=== PATIENT | female | born 1970 | race Caucasian/White ===

== ENCOUNTER 2022-10-25 05:56 | Inpatient (IN) | payer MEDICARE, OTHER, SELFPAY ==
[2022-10-25] MEDS ORDERED: Acetaminophen 500 MG TAB ONE (06:26)
[2022-10-25] MEDS ORDERED: Cefepime 2 GM VIAL ONE (06:26)
[2022-10-25 06:36] LABS: #Basophils 0.1 thou/uL (0.0-0.2); #Eosinphils 0.3 thou/uL (0.0-0.7); #Monocytes 1.3 thou/uL (0.11-0.59); #Neutrophils 14.2 thou/uL (1.40-6.50); %Basophils 0.5 % (0.0-1.0); %Eosinophils 1.6 % (0.0-10.0); %Lymphocytes 9.1 % (21.0-51.0); %Monocytes 7.1 % (0.0-10.0); %Neutrophils 80.4 % (42.0-75.0); Hemoglobin 14.3 g/dL (12.0-16.0); Mean Corpuscular HGB CONC 34.3 g/dL (32.0-36.0); Mean Corpuscular Hemoglobin 29.8 pg (27.0-31.0); Mean Corpuscular Volume 86.9 fl (78.0-98.0); Mean Platelet Volume 9.3 fL (7.4-10.4); Platelet Count 294 10x3/uL (130-400); RBC Distribution Width 13.1 % (11.5-14.5); White Blood Cell (WBC) Count 17.6 10x3/uL (4.8-10.8)
[2022-10-25 06:59] LABS: ALT (SGPT) 27 U/L (8-55); AST (SGOT) 24 U/L (5-34); Albumin 3.1 g/dL (3.5-5.0); Alkaline Phosphatase 81 U/L (40-110); Anion Gap 14 mmol/L (10-20); BUN (Urea Nitrogen) 6 mg/dL (9.8-20.1); Bilirubin, Total 0.3 mg/dL (0.2-1.2); Calc. Creatinine Clearance 0 mL/min (70-130); Calcium 8.5 mg/dL (7.8-10.44); Carbon Dioxide 17 mmol/L (22-29); Chloride 85 mmol/L (98-107); Estimated GFR 119; Globulin 3.6 g/dL (2.4-3.5); Glucose 122 mg/dL (70-105); Potassium 4.2 mmol/L (3.5-5.1); Protein, Total 6.7 g/dL (6.0-8.3)
[2022-10-25 07:07] LABS: Sodium 112 mmol/L (136-145)
[2022-10-25] MEDS ORDERED: Vancomycin 1 GM/200 ML (FROZEN) BAG ONE (07:20)
[2022-10-25] MEDS ORDERED: Ipratropium/Albuterol 3 ML NEB ONE ×2 (07:20→07:35)
[2022-10-25 07:33] LABS: Bilirubin Negative (Negative); Blood, Urine Large (Negative); Glucose, Urine (Dipstick) Negative (Negative); Ketone, Urine 15 mg/dL (Negative); Leukocyte Large (Negative); Nitrite Negative (Negative); Protein, Urine (Dipstick) Negative (Neg-Trace); Specific Gravity, Urine 1.025 (1.005-1.030)
[2022-10-25 07:37] LABS: Clarity Cloudy (Clear)
[2022-10-25 07:40] LABS: CAUTI Indications for Culture Dysuria,urgency,freq; WBC/HPF Greater Than 50 HPF (0-3)
[2022-10-25 07:41] LABS: Bacteria/HPF 4+ HPF (None Seen)
[2022-10-25 07:42] LABS: Urine Culture Reflex Yes Yes
[2022-10-25 08:26] LABS: Anion Gap 16 mmol/L (10-20); BUN (Urea Nitrogen) 6 mg/dL (9.8-20.1); Calc. Creatinine Clearance 0 mL/min (70-130); Calcium 8.7 mg/dL (7.8-10.44); Carbon Dioxide 16 mmol/L (22-29); Chloride 85 mmol/L (98-107); Estimated GFR 119; Glucose 109 mg/dL (70-105); Potassium 4.7 mmol/L (3.5-5.1)
[2022-10-25 08:32] LABS: Sodium 112 mmol/L (136-145)
[2022-10-25] MEDS ORDERED: Ondansetron PF 4 MG/2 ML Vial IVP PRN (08:34)
[2022-10-25] MEDS ORDERED: Senokot S 8.6-50 MG TAB PO PRN (08:34)
[2022-10-25] MEDS ORDERED: HYDROcodone/Acetaminophen 5/325 mg Tablet PO PRN (08:34)
[2022-10-25] MEDS ORDERED: Ipratropium/Albuterol 3 ML NEB NEB PRN (08:37)
[2022-10-25] MEDS ORDERED: Vancomycin 1 GM in Premix Bag 1 BAG IVPB SCH (09:00)
[2022-10-25 09:08] VITALS: BMI 29.0
[2022-10-25] MEDS ORDERED: VANCOMYCIN IVPB PRN (10:33)
[2022-10-25] MEDS ORDERED: Vancomycin HCl 500 MG in Sodium Chloride 0.9% 100 ML IVPB SCH (10:45)
[2022-10-25] MEDS ORDERED: metroNIDAZOLE 500 MG/100 ML BAG ONE (11:34)
[2022-10-25 11:45] LABS: Anion Gap 12 mmol/L (10-20); BUN (Urea Nitrogen) 6 mg/dL (9.8-20.1); Calc. Creatinine Clearance 209 mL/min (70-130); Calcium 8.8 mg/dL (7.8-10.44); Carbon Dioxide 19 mmol/L (22-29); Chloride 87 mmol/L (98-107); Estimated GFR 119; Glucose 107 mg/dL (70-105); Potassium 4.2 mmol/L (3.5-5.1)
[2022-10-25 11:54] LABS: Sodium 114 mmol/L (136-145)
[2022-10-25] MEDS: metroNIDAZOLE 500 MG in Premix Bag 1 BAG IVPB SCH ×2 (12:07→20:18)
[2022-10-25] MEDS ORDERED: Iopamidol-370 76% 500 ML MDV (1 ML CHARGE) ONE (13:00)
[2022-10-25 14:13] LABS: Anion Gap 12 mmol/L (10-20); BUN (Urea Nitrogen) 5 mg/dL (9.8-20.1); Calc. Creatinine Clearance 204 mL/min (70-130); Calcium 8.8 mg/dL (7.8-10.44); Carbon Dioxide 20 mmol/L (22-29); Chloride 88 mmol/L (98-107); Estimated GFR 118; Glucose 109 mg/dL (70-105)
[2022-10-25 14:17] LABS: Sodium 116 mmol/L (136-145)
[2022-10-25] MEDS: Ipratropium/Albuterol 3 ML NEB NEB SCH ×2 (17:07→18:39)
[2022-10-25 17:27] LABS: Potassium, Urine 49.3 mmol/L
[2022-10-25] MEDS: Cefepime 2 GM in Sodium Chloride 0.9% 100 ML IVPB SCH (21:04)
[2022-10-25] MEDS: Famotidine/PF 20 mg/2ml Vial SLOW IVP SCH (21:05)
[2022-10-25 21:40] LABS: Anion Gap 12 mmol/L (10-20); BUN (Urea Nitrogen) 4 mg/dL (9.8-20.1); Calc. Creatinine Clearance 204 mL/min (70-130); Calcium 9.2 mg/dL (7.8-10.44); Carbon Dioxide 23 mmol/L (22-29); Chloride 87 mmol/L (98-107); Estimated GFR 118; Glucose 111 mg/dL (70-105); Potassium 4.1 mmol/L (3.5-5.1)
[2022-10-25 21:43] LABS: Sodium 118 mmol/L (136-145)
[2022-10-25] MEDS ORDERED: Dextrose 5% in Water 1,000 ML IV SCH (23:15)
[2022-10-25] MEDS ORDERED: Electrolyte Replacement Protocol 1 EACH FS PRN (23:15)
[2022-10-25] MEDS: Vancomycin 1.5 GRAM/300 ML BAG 1.5 GM in Premix Bag 1 BAG IVPB SCH (23:46)
[2022-10-26] MEDS ORDERED: Melatonin 3 MG TAB PO SCH (00:30)
[2022-10-26] MEDS: Ipratropium/Albuterol 3 ML NEB NEB SCH ×3 (00:38→14:28)
[2022-10-26] MEDS: metroNIDAZOLE 500 MG in Premix Bag 1 BAG IVPB SCH ×3 (04:10→19:50)
[2022-10-26 05:02] LABS: Strep pneumo Urine Ag NEGATIVE (NEGATIVE)
[2022-10-26 07:11] LABS: #Basophils 0.1 thou/uL (0.0-0.2); #Eosinphils 0.3 thou/uL (0.0-0.7); #Monocytes 1.2 thou/uL (0.11-0.59); %Basophils 0.5 % (0.0-1.0); %Eosinophils 2.2 % (0.0-10.0); %Lymphocytes 10.1 % (21.0-51.0); %Monocytes 7.7 % (0.0-10.0); %Neutrophils 78.1 % (42.0-75.0); Hemoglobin 14.8 g/dL (12.0-16.0); Mean Corpuscular Hemoglobin 29.1 pg (27.0-31.0); Mean Corpuscular Volume 88.2 fl (78.0-98.0); Mean Platelet Volume 9.3 fL (7.4-10.4); Platelet Count 342 10x3/uL (130-400); RBC Distribution Width 13.6 % (11.5-14.5); Red Blood Cell (RBC) Count 5.08 mill/uL (4.20-5.40); White Blood Cell (WBC) Count 15.3 10x3/uL (4.8-10.8)
[2022-10-26 08:32] LABS: Chloride 89 mmol/L (98-107); Potassium 4.4 mmol/L (3.5-5.1); Sodium 120 mmol/L (136-145)
[2022-10-26 08:33] LABS: Calcium 9.6 mg/dL (7.8-10.44); Glucose 111 mg/dL (70-105)
[2022-10-26 08:35] LABS: Anion Gap 17 mmol/L (10-20); Carbon Dioxide 18 mmol/L (22-29)
[2022-10-26 08:37] LABS: BUN (Urea Nitrogen) Less than 4 mg/dL (9.8-20.1); Calc. Creatinine Clearance 186 mL/min (70-130); Estimated GFR 116
[2022-10-26] MEDS ORDERED: Dextrose 5% in Water 1,000 ML IV SCH (08:46)
[2022-10-26] MEDS: Cefepime 2 GM in Sodium Chloride 0.9% 100 ML IVPB SCH ×2 (09:05→19:51)
[2022-10-26] MEDS: Famotidine/PF 20 mg/2ml Vial SLOW IVP SCH ×2 (09:06→19:50)
[2022-10-26] MEDS: Vancomycin 1.5 GRAM/300 ML BAG 1.5 GM in Premix Bag 1 BAG IVPB SCH (09:08)
[2022-10-26 11:07] LABS: Anion Gap 13 mmol/L (10-20); BUN (Urea Nitrogen) 4 mg/dL (9.8-20.1); Calc. Creatinine Clearance 175 mL/min (70-130); Calcium 8.8 mg/dL (7.8-10.44); Carbon Dioxide 22 mmol/L (22-29); Chloride 89 mmol/L (98-107); Estimated GFR 114; Glucose 261 mg/dL (70-105); Potassium 4.2 mmol/L (3.5-5.1); Sodium 120 mmol/L (136-145)
[2022-10-26] MEDS: Acetaminophen 325 MG TAB PO PRN (12:25)
[2022-10-26 20:31] LABS: Vancomycin, Trough 11.8 ug/mL
[2022-10-26] MEDS: VANCOMYCIN 1.25 GM/250 ML BAG 1.25 GM in Premix Bag 1 BAG IVPB SCH (21:38)
[2022-10-26 21:52] LABS: Actual Bicarbonate (HCO3v) 31.2 mEq/L (22-28); Base Excess 1.9 mEq/L (-2.0 to +3.0); Calcium, Ionized (venous) 1.09 mmol/L (1.16-1.32); Chloride (VBG) 90 mmol/L (98-106); Hematocrit-VBG 41 % (36.0-47.0); Hemoglobin (Hb) 14.1 g/dL (11.7-16.0); pH (venous) 7.254 (7.32-7.43)
[2022-10-26 21:55] LABS: Potassium (VBG) 6.13 mmol/L (3.70-5.30)
[2022-10-26 22:12] LABS: #Basophils 0.1 thou/uL (0.0-0.2); #Eosinphils 0.2 thou/uL (0.0-0.7); #Monocytes 1.1 thou/uL (0.11-0.59); #Neutrophils 11.7 thou/uL (1.40-6.50); %Basophils 0.4 % (0.0-1.0); %Eosinophils 1.6 % (0.0-10.0); %Lymphocytes 5.6 % (21.0-51.0); %Monocytes 7.6 % (0.0-10.0); %Neutrophils 82.8 % (42.0-75.0); Hemoglobin 12.6 g/dL (12.0-16.0); Mean Corpuscular HGB CONC 33.2 g/dL (32.0-36.0); Mean Corpuscular Hemoglobin 29.3 pg (27.0-31.0); Mean Corpuscular Volume 88.4 fl (78.0-98.0); Mean Platelet Volume 9.5 fL (7.4-10.4); Platelet Count 337 10x3/uL (130-400); RBC Distribution Width 13.7 % (11.5-14.5); White Blood Cell (WBC) Count 14.2 10x3/uL (4.8-10.8)
[2022-10-26 22:23] LABS: Actual Bicarbonate (HCO3a) 28.7 mEq/L (22-28); Base Excess (BEa) 2.3 mEq/L (-2.0 to +3.0); CO2 Tension 51.5 mmHg (35.0-45.0); Calcium, Ionized (arterial) 1.16 mmol/L (1.12-1.30); Carboxyhemoglobin (COHb) 1.7 gm% (0.0-3.0); Hematocrit-ABG 42 % (36.0-47.0); Hemoglobin (Hb) 14.3 g/dL (12.0-16.0); Potassium - ABG Lab 4.38 mmol/L (3.70-5.30); pH, Arterial 7.364 (7.35-7.45)
[2022-10-27] MEDS: Ipratropium/Albuterol 3 ML NEB NEB SCH (00:09)
[2022-10-27] MEDS: Acetaminophen 325 MG TAB PO PRN (01:34)
[2022-10-27 02:27] LABS: Chloride 102 mmol/L (98-107); Potassium 3.5 mmol/L (3.5-5.1)
[2022-10-27 02:28] LABS: Glucose 106 mg/dL (70-105)
[2022-10-27 02:30] LABS: Anion Gap 15 mmol/L (10-20); Carbon Dioxide 26 mmol/L (22-29)
[2022-10-27 02:33] LABS: BUN (Urea Nitrogen) 13 mg/dL (9.8-20.1)
[2022-10-27 02:36] LABS: Calc. Creatinine Clearance 107 mL/min (70-130); Estimated GFR 89; Sodium 139 mmol/L (136-145)
[2022-10-27] MEDS: metroNIDAZOLE 500 MG in Premix Bag 1 BAG IVPB SCH ×3 (03:58→20:49)
[2022-10-27 04:38] LABS: Anion Gap 9 mmol/L (10-20); BUN (Urea Nitrogen) 7 mg/dL (9.8-20.1); Calc. Creatinine Clearance 186 mL/min (70-130); Calcium 9.2 mg/dL (7.8-10.44); Carbon Dioxide 29 mmol/L (22-29); Chloride 90 mmol/L (98-107); Estimated GFR 116; Glucose 165 mg/dL (70-105); Potassium 4.3 mmol/L (3.5-5.1); Sodium 124 mmol/L (136-145)
[2022-10-27] MEDS: VANCOMYCIN 1.25 GM/250 ML BAG 1.25 GM in Premix Bag 1 BAG IVPB SCH (05:21)
[2022-10-27 05:36] LABS: #Basophils 0.1 thou/uL (0.0-0.2); #Eosinphils 0.1 thou/uL (0.0-0.7); #Monocytes 1.4 thou/uL (0.11-0.59); #Neutrophils 14.7 thou/uL (1.40-6.50); %Basophils 0.4 % (0.0-1.0); %Eosinophils 0.8 % (0.0-10.0); %Lymphocytes 6.8 % (21.0-51.0); %Monocytes 7.6 % (0.0-10.0); %Neutrophils 82.4 % (42.0-75.0); Hemoglobin 13.1 g/dL (12.0-16.0); Mean Corpuscular HGB CONC 32.7 g/dL (32.0-36.0); Mean Corpuscular Hemoglobin 29.2 pg (27.0-31.0); Mean Corpuscular Volume 89.5 fl (78.0-98.0); Mean Platelet Volume 9.2 fL (7.4-10.4); Platelet Count 415 10x3/uL (130-400); RBC Distribution Width 13.6 % (11.5-14.5); Red Blood Cell (RBC) Count 4.48 mill/uL (4.20-5.40); White Blood Cell (WBC) Count 17.9 10x3/uL (4.8-10.8)
[2022-10-27] MEDS ORDERED: Dextrose 5% in Water 1,000 ML IV SCH ×2 (06:00→16:47)
[2022-10-27] MEDS: Ipratropium Bromide 2.5 ml Neb NEB SCH ×3 (06:20→18:24)
[2022-10-27] MEDS ORDERED: Lorazepam 2 MG/ML VIAL SLOW IVP PRN ×2 (08:07→11:30)
[2022-10-27] MEDS: levETIRAcetam 500 MG/5 ML VIAL SLOW IVP SCH ×2 (08:14→20:50)
[2022-10-27] MEDS: Cefepime 2 GM in Sodium Chloride 0.9% 100 ML IVPB SCH ×2 (08:15→20:49)
[2022-10-27] MEDS: Famotidine/PF 20 mg/2ml Vial SLOW IVP SCH ×2 (09:30→20:49)
[2022-10-27] MEDS ORDERED: Succinylcholine 200 MG/10 ml SYRINGE FS ONE (10:00)
[2022-10-27] MEDS ORDERED: PROPOFOL 200 MG/20 ML VIAL ONE (10:00)
[2022-10-27] MEDS ORDERED: Propofol 1,000 MG/100 ML VIAL IV ONE (10:06)
[2022-10-27] MEDS ORDERED: NOREPINEPHRINE 8 MG/250 ML-D5W 250 ML ONE (10:13)
[2022-10-27 10:27] LABS: Anion Gap 15 mmol/L (10-20); BUN (Urea Nitrogen) 8 mg/dL (9.8-20.1); Calc. Creatinine Clearance 175 mL/min (70-130); Calcium 9.5 mg/dL (7.8-10.44); Carbon Dioxide 20 mmol/L (22-29); Chloride 96 mmol/L (98-107); Estimated GFR 114; Glucose 206 mg/dL (70-105); Potassium 5.5 mmol/L (3.5-5.1); Sodium 125 mmol/L (136-145)
[2022-10-27] MEDS: Propofol 1,000 MG/100 ML VIAL IV PRN ×2 (11:00→23:45)
[2022-10-27] MEDS ORDERED: Dextrose 50% Abboject 50 ML SYRINGE SLOW IVP SCH (11:20)
[2022-10-27] MEDS ORDERED: Fentanyl BOLUS 250 ML IVPB PRN (11:30)
[2022-10-27] MEDS ORDERED: Morphine 2 MG/ML VIAL SLOW IVP PRN (11:30)
[2022-10-27] MEDS ORDERED: Insulin Regular 300 UNITS/3 ML VIAL IVP SCH (11:30)
[2022-10-27] MEDS ORDERED: NOREPINEPHRINE 8 MG/250 ML-D5W 250 ML IVPB SCH (11:30)
[2022-10-27] MEDS ORDERED: Propofol BOLUS 1,000 MG/100 ML VIAL IV PRN (11:30)
[2022-10-27] MEDS ORDERED: Fentanyl CADD 100 ML IV SCH (11:30)
[2022-10-27] MEDS ORDERED: DISCONTINUE PREVIOUS NARCOTIC PAIN MEDICATIONS AND BENZODIAZEPINES FS SCH (11:30)
[2022-10-27 11:43] LABS: Amphetamine Not Detected (NotDetected); Barbiturates Screen Not Detected (NotDetected); Benzodiazepine Screen Detected (NotDetected); Cocaine Metabolite Screen Not Detected (NotDetected); Methadone Not Detected (NotDetected); Methamphetamine Not Detected (NotDetected); Opiate Screen Not Detected (NotDetected); Oxycodone Screen Not Detected (NotDetected); Phencyclidine (PCP) Not Detected (NotDetected); THC/Cannabinoid Screen Not Detected (NotDetected); Tricyclic Screen Not Detected (NotDetected)
[2022-10-27 11:55] LABS: Lactic Acid 1.4 mmol/L (0.5-2.2)
[2022-10-27 13:38] LABS: Anion Gap 13 mmol/L (10-20); BUN (Urea Nitrogen) 7 mg/dL (9.8-20.1); Calc. Creatinine Clearance 172 mL/min (70-130); Calcium 9.4 mg/dL (7.8-10.44); Carbon Dioxide 26 mmol/L (22-29); Chloride 93 mmol/L (98-107); Estimated GFR 113; Glucose 178 mg/dL (70-105); Potassium 4.3 mmol/L (3.5-5.1); Sodium 128 mmol/L (136-145)
[2022-10-27] MEDS ORDERED: Fentanyl CADD 100 ML ONE (14:43)
[2022-10-27 16:03] LABS: Magnesium 1.6 mg/dL (1.6-2.6)
[2022-10-27 18:46] LABS: Actual Bicarbonate (HCO3v) 27.3 mEq/L (22-28); Base Excess 2.1 mEq/L (-2.0 to +3.0); Calcium, Ionized (venous) 1.21 mmol/L (1.16-1.32); Chloride (VBG) 97 mmol/L (98-106); Hematocrit-VBG 40 % (36.0-47.0); Hemoglobin (Hb) 13.6 g/dL (11.7-16.0); Potassium (VBG) 3.74 mmol/L (3.70-5.30); Sodium 127.8 mmol/L (133-146); pH (venous) 7.407 (7.32-7.43)
[2022-10-28] MEDS: metroNIDAZOLE 500 MG in Premix Bag 1 BAG IVPB SCH ×3 (04:12→20:44)
[2022-10-28 04:51] LABS: #Basophils 0.1 thou/uL (0.0-0.2); #Eosinphils 0.2 thou/uL (0.0-0.7); #Neutrophils 11.7 thou/uL (1.40-6.50); %Basophils 0.7 % (0.0-1.0); %Eosinophils 1.2 % (0.0-10.0); %Lymphocytes 12.1 % (21.0-51.0); %Monocytes 12.2 % (0.0-10.0); %Neutrophils 70.8 % (42.0-75.0); Hemoglobin 12.8 g/dL (12.0-16.0); Platelet Count 410 10x3/uL (130-400); RBC Distribution Width 13.8 % (11.5-14.5); Red Blood Cell (RBC) Count 4.41 mill/uL (4.20-5.40); White Blood Cell (WBC) Count 16.5 10x3/uL (4.8-10.8)
[2022-10-28 05:18] LABS: ALT (SGPT) 21 U/L (8-55); AST (SGOT) 15 U/L (5-34); Albumin 2.9 g/dL (3.5-5.0); Alkaline Phosphatase 60 U/L (40-110); Anion Gap 12 mmol/L (10-20); BUN (Urea Nitrogen) 4 mg/dL (9.8-20.1); Bilirubin, Total 0.3 mg/dL (0.2-1.2); Calc. Creatinine Clearance 186 mL/min (70-130); Calcium 9.1 mg/dL (7.8-10.44); Carbon Dioxide 28 mmol/L (22-29); Chloride 98 mmol/L (98-107); Estimated GFR 116; Globulin 3.2 g/dL (2.4-3.5); Glucose 162 mg/dL (70-105); Potassium 3.3 mmol/L (3.5-5.1); Protein, Total 6.1 g/dL (6.0-8.3); Sodium 135 mmol/L (136-145)
[2022-10-28] MEDS: Ipratropium Bromide 2.5 ml Neb NEB SCH ×3 (06:41→19:06)
[2022-10-28] MEDS: Cefepime 2 GM in Sodium Chloride 0.9% 100 ML IVPB SCH ×2 (07:51→20:44)
[2022-10-28] MEDS: Potassium Chloride 20 MEQ in Premix Bag 1 BAG IVPB SCH ×2 (07:51→09:21)
[2022-10-28] MEDS ORDERED: Magnesium 2 GM/50 ML(in water) 2 GM in Premix Bag 1 BAG IVPB SCH (08:00)
[2022-10-28] MEDS: levETIRAcetam 500 MG/5 ML VIAL SLOW IVP SCH ×2 (08:46→20:45)
[2022-10-28] MEDS: Famotidine/PF 20 mg/2ml Vial SLOW IVP SCH ×2 (08:46→20:45)
[2022-10-28] MEDS ORDERED: Dexmedetomidine 400 MCG, Admixture Fee 1 EACH in Sodium Chloride 0.9% 96 ML IVPB SCH (11:45)
[2022-10-28] MEDS ORDERED: Lactated Ringer's 1,000 ML IV SCH (18:45)
[2022-10-29] MEDS: metroNIDAZOLE 500 MG in Premix Bag 1 BAG IVPB SCH (04:19)
[2022-10-29 04:33] LABS: #Basophils 0.1 thou/uL (0.0-0.2); #Eosinphils 0.4 thou/uL (0.0-0.7); #Neutrophils 6.3 thou/uL (1.40-6.50); %Basophils 0.6 % (0.0-1.0); %Eosinophils 4.7 % (0.0-10.0); %Lymphocytes 15.2 % (21.0-51.0); %Monocytes 10.2 % (0.0-10.0); %Neutrophils 68.1 % (42.0-75.0); Hemoglobin 11.9 g/dL (12.0-16.0); Mean Corpuscular HGB CONC 32.6 g/dL (32.0-36.0); Mean Corpuscular Hemoglobin 29.4 pg (27.0-31.0); Mean Corpuscular Volume 90.1 fl (78.0-98.0); Mean Platelet Volume 8.9 fL (7.4-10.4); Red Blood Cell (RBC) Count 4.05 mill/uL (4.20-5.40); White Blood Cell (WBC) Count 9.3 10x3/uL (4.8-10.8)
[2022-10-29 04:36] LABS: Platelet Count 259 10x3/uL (130-400)
[2022-10-29 04:56] LABS: ALT (SGPT) 21 U/L (8-55); AST (SGOT) 21 U/L (5-34); Albumin 2.7 g/dL (3.5-5.0); Alkaline Phosphatase 54 U/L (40-110); Anion Gap 13 mmol/L (10-20); BUN (Urea Nitrogen) 6 mg/dL (9.8-20.1); Bilirubin, Total 0.3 mg/dL (0.2-1.2); Calc. Creatinine Clearance 209 mL/min (70-130); Calcium 9.2 mg/dL (7.8-10.44); Carbon Dioxide 26 mmol/L (22-29); Chloride 98 mmol/L (98-107); Estimated GFR 119; Globulin 3.1 g/dL (2.4-3.5); Glucose 101 mg/dL (70-105); Protein, Total 5.8 g/dL (6.0-8.3); Sodium 133 mmol/L (136-145)
[2022-10-29] MEDS: Ipratropium Bromide 2.5 ml Neb NEB SCH ×3 (07:26→18:29)
[2022-10-29] MEDS: Cefepime 2 GM in Sodium Chloride 0.9% 100 ML IVPB SCH ×2 (08:06→19:18)
[2022-10-29] MEDS: levETIRAcetam 500 MG/5 ML VIAL SLOW IVP SCH ×2 (08:06→20:01)
[2022-10-29] MEDS: Famotidine/PF 20 mg/2ml Vial SLOW IVP SCH ×2 (08:06→20:01)
[2022-10-29] MEDS ORDERED: DC Sedation Protocol FS ONE (08:48)
[2022-10-29] MEDS ORDERED: Sodium Chloride 0.9% 1,000 ML IV SCH (11:00)
[2022-10-29] MEDS ORDERED: Metoprolol Tartrate 25 MG TAB PO SCH (13:00)
[2022-10-29] MEDS: Metoprolol Tartrate 25 MG TAB PO SCH (20:00)
[2022-10-29] MEDS: Sodium Chloride 0.9% 1,000 ML IV SCH (20:48)
[2022-10-29] MEDS: diphenhydrAMINE 25 MG CAP PO PRN (20:51)
[2022-10-29 21:36] LABS: L.pneumophilia Abs <0.91 OD ratio (0.00-0.90)
[2022-10-30] MEDS: Sodium Chloride 0.9% 1,000 ML IV SCH (03:53)
[2022-10-30 06:52] LABS: #Eosinphils 0.5 thou/uL (0.0-0.7); #Monocytes 0.9 thou/uL (0.11-0.59); #Neutrophils 5.5 thou/uL (1.40-6.50); %Basophils 0.5 % (0.0-1.0); %Eosinophils 6.5 % (0.0-10.0); %Lymphocytes 14.7 % (21.0-51.0); %Monocytes 11.1 % (0.0-10.0); %Neutrophils 65.8 % (42.0-75.0); Hemoglobin 11.6 g/dL (12.0-16.0); Mean Corpuscular HGB CONC 31.6 g/dL (32.0-36.0); Mean Corpuscular Hemoglobin 29.4 pg (27.0-31.0); Mean Corpuscular Volume 93.1 fl (78.0-98.0); Mean Platelet Volume 9.1 fL (7.4-10.4); Platelet Count 273 10x3/uL (130-400); RBC Distribution Width 14.3 % (11.5-14.5); Red Blood Cell (RBC) Count 3.94 mill/uL (4.20-5.40); White Blood Cell (WBC) Count 8.3 10x3/uL (4.8-10.8)
[2022-10-30] MEDS: Ipratropium Bromide 2.5 ml Neb NEB SCH (07:12)
[2022-10-30 07:21] LABS: ALT (SGPT) 18 U/L (8-55); AST (SGOT) 18 U/L (5-34); Albumin 2.5 g/dL (3.5-5.0); Alkaline Phosphatase 49 U/L (40-110); Anion Gap 13 mmol/L (10-20); BUN (Urea Nitrogen) Less than 4 mg/dL (9.8-20.1); Bilirubin, Total 0.2 mg/dL (0.2-1.2); Calc. Creatinine Clearance 214 mL/min (70-130); Calcium 8.8 mg/dL (7.8-10.44); Carbon Dioxide 27 mmol/L (22-29); Chloride 102 mmol/L (98-107); Estimated GFR 120; Globulin 2.9 g/dL (2.4-3.5); Glucose 95 mg/dL (70-105); Potassium 3.4 mmol/L (3.5-5.1); Protein, Total 5.4 g/dL (6.0-8.3); Sodium 139 mmol/L (136-145)
[2022-10-30] MEDS: levETIRAcetam 500 MG/5 ML VIAL SLOW IVP SCH ×2 (08:02→20:07)
[2022-10-30] MEDS: Metoprolol Tartrate 25 MG TAB PO SCH ×2 (08:02→20:08)
[2022-10-30] MEDS: Famotidine/PF 20 mg/2ml Vial SLOW IVP SCH (08:02)
[2022-10-30] MEDS: Cefepime 2 GM in Sodium Chloride 0.9% 100 ML IVPB SCH ×2 (08:02→20:08)
[2022-10-30] MEDS: Potassium Chloride 20 MEQ in Premix Bag 1 BAG IVPB SCH ×2 (08:19→09:51)
[2022-10-30 17:14] LABS: Potassium 5.8 mmol/L (3.5-5.1)
[2022-10-30 18:19] LABS: Potassium 4.6 mmol/L (3.5-5.1)
[2022-10-30] MEDS: Albumin 25% 25 GM/100 ML BOT IVPB SCH (20:07)
[2022-10-30] MEDS: Famotidine 20 MG TAB PO SCH (20:08)
[2022-10-30] MEDS: Azithromycin 250 MG TAB PO SCH (20:08)
[2022-10-30] MEDS: diphenhydrAMINE 25 MG CAP PO PRN (20:08)
[2022-10-31] MEDS: Acetaminophen 325 MG TAB PO PRN ×2 (04:00→20:00)
[2022-10-31] MEDS: Albumin 25% 25 GM/100 ML BOT IVPB SCH ×3 (06:09→18:24)
[2022-10-31] MEDS: Guaifenesin DM 100-10/5 ML UDCUP PO PRN ×2 (06:25→22:08)
[2022-10-31] MEDS: levETIRAcetam 500 MG/5 ML VIAL SLOW IVP SCH ×2 (08:07→20:00)
[2022-10-31] MEDS: Cefepime 2 GM in Sodium Chloride 0.9% 100 ML IVPB SCH (08:07)
[2022-10-31] MEDS: Metoprolol Tartrate 25 MG TAB PO SCH ×2 (08:08→20:00)
[2022-10-31] MEDS: Famotidine 20 MG TAB PO SCH ×2 (08:08→20:01)
[2022-10-31 08:29] LABS: #Eosinphils 0.7 thou/uL (0.0-0.7); #Monocytes 0.6 thou/uL (0.11-0.59); #Neutrophils 4.3 thou/uL (1.40-6.50); %Basophils 0.4 % (0.0-1.0); %Eosinophils 9.6 % (0.0-10.0); %Lymphocytes 18.3 % (21.0-51.0); Hemoglobin 11.8 g/dL (12.0-16.0); Mean Corpuscular HGB CONC 30.5 g/dL (32.0-36.0); Mean Corpuscular Hemoglobin 28.9 pg (27.0-31.0); Mean Corpuscular Volume 94.9 fl (78.0-98.0); Mean Platelet Volume 8.9 fL (7.4-10.4); Platelet Count 269 10x3/uL (130-400); RBC Distribution Width 14.3 % (11.5-14.5); Red Blood Cell (RBC) Count 4.08 mill/uL (4.20-5.40); White Blood Cell (WBC) Count 6.9 10x3/uL (4.8-10.8)
[2022-10-31 09:05] LABS: ALT (SGPT) 19 U/L (8-55); AST (SGOT) 18 U/L (5-34); Albumin 3.6 g/dL (3.5-5.0); Alkaline Phosphatase 47 U/L (40-110); Anion Gap 14 mmol/L (10-20); BUN (Urea Nitrogen) 5 mg/dL (9.8-20.1); Bilirubin, Total 0.4 mg/dL (0.2-1.2); Calc. Creatinine Clearance 200 mL/min (70-130); Calcium 10.1 mg/dL (7.8-10.44); Carbon Dioxide 30 mmol/L (22-29); Chloride 101 mmol/L (98-107); Estimated GFR 118; Globulin 2.8 g/dL (2.4-3.5); Glucose 156 mg/dL (70-105); Potassium 3.9 mmol/L (3.5-5.1); Protein, Total 6.4 g/dL (6.0-8.3); Sodium 141 mmol/L (136-145)
[2022-10-31] MEDS ORDERED: Bisacodyl 10 MG SUPP PR PRN (10:10)
[2022-10-31] MEDS ORDERED: Polyethylene Glycol 3350 17 GM Packet PO PRN (10:10)
[2022-10-31] MEDS ORDERED: Polyethylene Glycol 3350 17 GM Packet PO SCH (10:30)
[2022-10-31] MEDS: Benzonatate 100 MG CAP PO PRN ×2 (15:08→20:00)
[2022-10-31 17:14] LABS: Mycoplasma pneumoniae IgG AB 109 U/mL (0-99); Mycoplasma pneumoniae IgM AB Less than 770 U/mL (0-769)
[2022-10-31] MEDS: diphenhydrAMINE 25 MG CAP PO SCH (20:00)
[2022-10-31] MEDS: Azithromycin 250 MG TAB PO SCH (20:00)
[2022-10-31] MEDS: cefTRIAXone\\ROCEPHIN 2 GM in Sodium Chloride 0.9% 100 ML IVPB SCH (20:17)
[2022-11-01] MEDS: Albumin 25% 25 GM/100 ML BOT IVPB SCH ×4 (00:30→17:22)
[2022-11-01] MEDS: Benzonatate 100 MG CAP PO PRN ×2 (03:14→12:40)
[2022-11-01 07:01] LABS: #Eosinphils 0.6 thou/uL (0.0-0.7); #Monocytes 0.5 thou/uL (0.11-0.59); #Neutrophils 3.1 thou/uL (1.40-6.50); %Basophils 0.5 % (0.0-1.0); %Eosinophils 10.9 % (0.0-10.0); %Lymphocytes 23.5 % (21.0-51.0); %Monocytes 9.3 % (0.0-10.0); %Neutrophils 55.1 % (42.0-75.0); Mean Corpuscular HGB CONC 30.3 g/dL (32.0-36.0); Mean Corpuscular Hemoglobin 29.3 pg (27.0-31.0); Mean Corpuscular Volume 96.8 fl (78.0-98.0); Mean Platelet Volume 9.4 fL (7.4-10.4); Platelet Count 223 10x3/uL (130-400); RBC Distribution Width 14.2 % (11.5-14.5); Red Blood Cell (RBC) Count 3.75 mill/uL (4.20-5.40); White Blood Cell (WBC) Count 5.7 10x3/uL (4.8-10.8)
[2022-11-01 07:23] LABS: AST (SGOT) 22 U/L (5-34); Bilirubin, Total 0.2 mg/dL (0.2-1.2); Calcium 10.5 mg/dL (7.8-10.44); Chloride 104 mmol/L (98-107); Potassium 4.8 mmol/L (3.5-5.1); Sodium 144 mmol/L (136-145)
[2022-11-01 07:32] LABS: Albumin 4.3 g/dL (3.5-5.0)
[2022-11-01 07:33] LABS: ALT (SGPT) 16 U/L (8-55); Alkaline Phosphatase 40 U/L (40-110); Anion Gap 16 mmol/L (10-20); BUN (Urea Nitrogen) 6 mg/dL (9.8-20.1); Calc. Creatinine Clearance 214 mL/min (70-130); Carbon Dioxide 28 mmol/L (22-29); Estimated GFR 120; Globulin 2.7 g/dL (2.4-3.5); Glucose 105 mg/dL (70-105)
[2022-11-01] MEDS ORDERED: Fleet Saline Enema 133 ML BOT PR SCH (08:30)
[2022-11-01] MEDS: Polyethylene Glycol 3350 17 GM Packet PO SCH (09:56)
[2022-11-01] MEDS: Famotidine 20 MG TAB PO SCH ×2 (09:56→21:09)
[2022-11-01] MEDS: levETIRAcetam 500 MG/5 ML VIAL SLOW IVP SCH ×2 (09:56→21:06)
[2022-11-01] MEDS: Ivabradine 5 MG TAB PO SCH ×2 (10:17→21:06)
[2022-11-01] MEDS: Acetaminophen 325 MG TAB PO PRN (17:21)
[2022-11-01] MEDS: cefTRIAXone\\ROCEPHIN 2 GM in Sodium Chloride 0.9% 100 ML IVPB SCH (21:05)
[2022-11-01] MEDS: Azithromycin 250 MG TAB PO SCH (21:06)
[2022-11-01] MEDS: diphenhydrAMINE 25 MG CAP PO SCH (21:06)
[2022-11-02 05:06] LABS: #Basophils 0.1 thou/uL (0.0-0.2); #Eosinphils 0.6 thou/uL (0.0-0.7); #Monocytes 0.5 thou/uL (0.11-0.59); #Neutrophils 2.7 thou/uL (1.40-6.50); %Basophils 1.1 % (0.0-1.0); %Eosinophils 10.1 % (0.0-10.0); %Lymphocytes 30.6 % (21.0-51.0); %Monocytes 9.6 % (0.0-10.0); %Neutrophils 48.2 % (42.0-75.0); Hemoglobin 12.4 g/dL (12.0-16.0); Mean Corpuscular Hemoglobin 29.4 pg (27.0-31.0); Mean Corpuscular Volume 97.9 fl (78.0-98.0); Platelet Count 220 10x3/uL (130-400); Red Blood Cell (RBC) Count 4.22 mill/uL (4.20-5.40); White Blood Cell (WBC) Count 5.5 10x3/uL (4.8-10.8)
[2022-11-02 05:31] LABS: ALT (SGPT) 17 U/L (8-55); AST (SGOT) 17 U/L (5-34); Albumin 4.5 g/dL (3.5-5.0); Alkaline Phosphatase 47 U/L (40-110); Anion Gap 14 mmol/L (10-20); BUN (Urea Nitrogen) 9 mg/dL (9.8-20.1); Bilirubin, Total 0.3 mg/dL (0.2-1.2); Calc. Creatinine Clearance 172 mL/min (70-130); Calcium 10.8 mg/dL (7.8-10.44); Carbon Dioxide 31 mmol/L (22-29); Chloride 102 mmol/L (98-107); Estimated GFR 113; Globulin 2.7 g/dL (2.4-3.5); Glucose 120 mg/dL (70-105); Potassium 4.9 mmol/L (3.5-5.1); Protein, Total 7.2 g/dL (6.0-8.3); Sodium 142 mmol/L (136-145)
[2022-11-02] MEDS: Famotidine 20 MG TAB PO SCH ×2 (10:19→20:33)
[2022-11-02] MEDS: levETIRAcetam 500 MG/5 ML VIAL SLOW IVP SCH (10:19)
[2022-11-02] MEDS: Polyethylene Glycol 3350 17 GM Packet PO SCH (10:24)
[2022-11-02] MEDS: Ivabradine 5 MG TAB PO SCH ×2 (10:26→20:33)
[2022-11-02] MEDS: levETIRAcetam 500 MG TAB PO SCH (20:33)
[2022-11-02] MEDS: diphenhydrAMINE 25 MG CAP PO SCH (20:33)
[2022-11-03] MEDS: levETIRAcetam 500 MG TAB PO SCH (10:18)
[2022-11-03] MEDS: Famotidine 20 MG TAB PO SCH (10:18)
[2022-11-03] MEDS: Ivabradine 5 MG TAB PO SCH (10:19)
[2022-11-03] MEDS: Polyethylene Glycol 3350 17 GM Packet PO SCH (10:20)
[2022-11-03 16:38] VITALS: BP 118/59; TEMP 98.5
== END 2022-11-03 17:40 | disposition home or self-care (01) | DRG 871 ==
LOC: ERS 05:56 → ERHOLD 07:50 → IMCU/EMU 16:29 → CCU 10-27 09:56 → 2SE 11-01 20:47
PROVIDERS: ADMIT Family Medicine; ATTEND Hospitalist
PROC: 3E03329 Introduction of Other Anti-infective into Peripheral Vein, Percutaneous Approach (ICD-10-PCS; 2022-10-25)
PROC: 4A133R1 Monitoring of Arterial Saturation, Peripheral, Percutaneous Approach (ICD-10-PCS; 2022-10-26)
PROC: 0BH17EZ Insertion of Endotracheal Airway into Trachea, Via Natural or Artificial Opening (ICD-10-PCS; principal; 2022-10-27)
PROC: 3E033XZ Introduction of Vasopressor into Peripheral Vein, Percutaneous Approach (ICD-10-PCS; 2022-10-27)
PROC: 5A1945Z Respiratory Ventilation, 24-96 Consecutive Hours (ICD-10-PCS; 2022-10-27)
DX: A41.51 Sepsis due to Escherichia coli [E. coli] (principal); G93.41 Metabolic encephalopathy; J18.9 Pneumonia, unspecified organism; J96.01 Acute respiratory failure with hypoxia; N39.0 Urinary tract infection, site not specified; J90 Pleural effusion, not elsewhere classified; E22.2 Syndrome of inappropriate secretion of antidiuretic hormone; G40.209 Localization-related (focal) (partial) symptomatic epilepsy and epileptic syndromes with complex partial seizures, not intractable, without status epilepticus; E87.29 Other acidosis; I12.9 Hypertensive chronic kidney disease with stage 1 through stage 4 chronic kidney disease, or unspecified chronic kidney disease; N18.1 Chronic kidney disease, stage 1; D63.1 Anemia in chronic kidney disease; I95.9 Hypotension, unspecified; R65.20 Severe sepsis without septic shock; G80.9 Cerebral palsy, unspecified; Z98.890 Other specified postprocedural states; Z88.0 Allergy status to penicillin; Z79.899 Other long term (current) drug therapy; Z87.891 Personal history of nicotine dependence; Z74.01 Bed confinement status
CPT/HCPCS: 36415; 36416; 51702; 70450; 70551; 71045; 71275; 80048; 80053; 80202; 80306; 81001; 82010; 82436; 82693; 82805; 83605; 83735; 83880; 83930; 83935; 84133; 84145; 84300; 84443; 85025; 86713; 87040; 87077; 87081; 87086; 87186; 87449; 93005; 93010; 93306; 94002; 94003; 94640; 95816; 95819; 95957; 96365; 96366; 96367; J0692; J0696; J1650; J1953; J2060; J2405; J2704; J3010; J3370; J3370-JW; J3475; J3480; J3490; J7050; J7070; J7620; P9047; Q9967; S0028

== ENCOUNTER 2023-06-26 13:07 | Emergency (ER) | payer OTHER ==
[2023-06-26] MEDS ORDERED: Morphine 4 MG/ML VIAL ONE (14:27)
[2023-06-26] MEDS ORDERED: Promethazine 25 MG TAB ONE (14:27)
== END 2023-06-26 15:54 | disposition home or self-care (01) ==
LOC: ERS 13:07
DX: S82.242A Displaced spiral fracture of shaft of left tibia, initial encounter for closed fracture (principal); I10 Essential (primary) hypertension; Z87.891 Personal history of nicotine dependence; Z79.899 Other long term (current) drug therapy; X50.1XXA Overexertion from prolonged static or awkward postures, initial encounter
CPT/HCPCS: 27750; 96372; J2270; Q0169

== ENCOUNTER 2023-07-03 10:24 | Day surgery (SDC) | payer OTHER ==
[2023-07-02 15:54] VITALS: BMI 25.0
[2023-07-03 12:15] LABS: #Eosinphils 0.1 thou/uL (0.0-0.7); #Monocytes 0.9 thou/uL (0.11-0.59); #Neutrophils 11.6 thou/uL (1.40-6.50); %Basophils 0.3 % (0.0-1.0); %Eosinophils 0.5 % (0.0-10.0); %Lymphocytes 14.1 % (21.0-51.0); %Neutrophils 78.7 % (42.0-75.0); Hematocrit 43.1 % (36.0-47.0); Hemoglobin 14.3 g/dL (12.0-16.0); Mean Corpuscular HGB CONC 33.2 g/dL (32.0-36.0); Mean Corpuscular Hemoglobin 30.7 pg (27.0-31.0); Mean Corpuscular Volume 92.5 fl (78.0-98.0); Mean Platelet Volume 10.1 fL (7.4-10.4); Platelet Count 272 10x3/uL (130-400); RBC Distribution Width 12.3 % (11.5-14.5); Red Blood Cell (RBC) Count 4.66 mill/uL (4.20-5.40); White Blood Cell (WBC) Count 14.7 10x3/uL (4.8-10.8)
[2023-07-03 12:32] LABS: Anion Gap 14 mmol/L (10-20); BUN (Urea Nitrogen) 23 mg/dL (9.8-20.1); Calc. Creatinine Clearance 137 mL/min (70-130); Carbon Dioxide 22 mmol/L (22-29); Chloride 108 mmol/L (98-107); Estimated GFR 110; Glucose 117 mg/dL (70-105); Potassium 4.5 mmol/L (3.5-5.1); Sodium 139 mmol/L (136-145)
[2023-07-03] MEDS ORDERED: fentaNYL PF 100 MCG/2 ML SYRINGE ONE (12:32)
[2023-07-03] MEDS ORDERED: PROPOFOL 40 ML ONE (12:33)
[2023-07-03] MEDS ORDERED: CEFAZOLIN 2 GM VIAL ONE (12:45)
[2023-07-03] MEDS ORDERED: Sodium Chloride 0.9% 100 ML ONE (12:45)
[2023-07-03] MEDS ORDERED: Midazolam HCl 2 mg/2 ml Vial ONE (12:48)
[2023-07-03] MEDS ORDERED: fentaNYL 50 mcg/mL 1 mL Vial ONE (13:32)
[2023-07-03] MEDS ORDERED: HYDROcodone/Acetaminophen 5/325 mg Tablet ONE (13:40)
[2023-07-03] MEDS ORDERED: Baclofen 10 MG TAB PO PRN (14:37)
== END 2023-07-03 15:48 | disposition home or self-care (01) ==
LOC: SDC 10:24
PROVIDERS: ATTEND Orthopaedic Surgery
PROC: 0QSHXZZ Reposition Left Tibia, External Approach (ICD-10-PCS; principal; 2023-07-03)
DX: S82.245A Nondisplaced spiral fracture of shaft of left tibia, initial encounter for closed fracture (principal); W05.0XXA Fall from non-moving wheelchair, initial encounter
CPT/HCPCS: 27752; 73590; 80048; 85025; 93005; J3010; 93010; J2250; J2704; J3490